=== PATIENT | male | born 1945 ===

== ENCOUNTER 2018-05-06 09:32 | Day surgery (SDC) | payer MEDICARE ==
[2018-04-24 10:00] VITALS: BMI 28.3
[2018-05-06 10:15] VITALS: RESP 18
[2018-05-06] MEDS ORDERED: Bupivacaine 0.5% Inj(30mL) ONE (12:23)
[2018-05-06] MEDS ORDERED: Propofol 10 mg/ml Inj (20 ML) ONE (12:34)
[2018-05-06] MEDS ORDERED: Lidocaine 1% Inj (20ml) ONE (12:34)
[2018-05-06] MEDS ORDERED: Rocuronium 10 mg/ml (5 ml) ONE (12:42)
[2018-05-06] MEDS ORDERED: Neostigmine Methylsulfate 3mg/3ml Syringe IV ONE (14:01)
[2018-05-06] MEDS ORDERED: HYDROmorphone 0.5 mg/0.5 ml ISec IVP PRN (14:27)
--- NOTE | 2018-05-06 14:28 | PCM.SURG1 ---
Surgeon's Initial Post Op Note - Surgeon's Notes Surgeon: Dr. Gray Support Group Manager: Yelena Robles, PGY2. Anabell Quach PGY1 Type of Anesthesia: General Endo Anesthesia Administered By: Dr. Fox Pre-Operative Diagnosis: right inguinal hernia Operative Findings: right indirect inguinal hernia with cord lipoma--see full operative report Post-Operative Diagnosis: right indirect inguinal hernia, cord lipoma Operation Performed: right inguinal hernia repair with mesh Specimen/Specimens Removed: Cord lipoma x2 Estimated Blood Loss: EBL {In ML}: 10 Blood Products Given: N/A Drains Used: No Drains Post-Op Condition: Fair Date of Surgery/Procedure: 05/06/18 Time of Surgery/Procedure: 12:00
[2018-05-06] MEDS ORDERED: Lactated Ringer's 1,000 ML IV SCH (14:30)
--- NOTE | 2018-05-06 14:40 | CP.PCM.PCO ---
Physician Communication Note - Physician Communication Note Physician Communication Note: Spoke to Caesar Pt's sister on the phone. Addendum Addendum: 05/06/18 14:38 Spoke to Caesar, patient's sister, on the phone at 1436 to notify her that patient is out of the OR, tolerated procedure well, and explained discharge orders to return to the hospital if patient does not void urine by 8:30PM. Sister of patient confirmed understanding of instructions
[2018-05-06 15:21] VITALS: PULSE 58; TEMP 97.5; O2SAT 95
[2018-05-06 15:54] VITALS: BP 144/81
--- NOTE | 2018-05-07 01:53 | OP ---
PROCEDURE DATE: 05/06/2018 PREOPERATIVE DIAGNOSIS: Right inguinal hernia. POSTOPERATIVE DIAGNOSIS: Right inguinal hernia. PROCEDURE PERFORMED: Right inguinal hernia repair with mesh. SURGEON: Tristen Gray MD ALL SOURCE COLLECTION MANAGER: Dr. Robles and Dr. Quach. ANESTHESIOLOGIST: Mario Fox MD ANESTHESIA: General endotracheal anesthesia. ESTIMATED BLOOD LOSS: Minimal. SPECIMEN: Cord lipoma. INDICATIONS: The patient is a 72-year-old male with the history of right groin pain, discomfort and bulge associated with tenderness. Patient was examined in the office and noted to have an inguinal hernia and was scheduled for the repair. DESCRIPTION OF PROCEDURE: Patient was brought to the operating room and placed on the operating room table in supine position. The patient was connected to EKG, blood pressure and pulse oximetry monitors. The patient then underwent general endotracheal anesthesia, prepped and draped in the usual sterile fashion. First a standard time-out procedure took place, when everybody in the room agreed as to the patient's identity, diagnoses, and procedure to be performed. A plan for surgical procedure as well as postoperative course was explained to the OR staff. We then proceeded with surgery. First using lidocaine mixed with Marcaine in the area of the inguinal canal, skin overlying inguinal canal was injected and incision was made directly overlying the canal. The incision was carried through the subcutaneous fat and fascia and access to the external oblique aponeurosis was exposed. The aponeurosis was incised along its fibers and elevated and the ilioinguinal nerve was identified. It was detached from the surrounding tissues and elevated and pushed aside in order to avoid injury. Now we proceeded with mobilization of the spermatic cord and its structures and elevated on a Orly drain. The cord was skeletonized, was noted to have two lipomas and small hernia sac, which was pushed back into the abdominal cavity. The preperitoneal space was mobilized through the internal ring of the inguinal canal and hernia patch was used to repair the hernia. The posterior leaf was flattened in the preperitoneal space and the external leaf was switched to the edges of transversalis fascia and inguinal ligament with the monterroso hole cut out for the spermatic cord exit site. Once this was placed flatly on the floor, the cord was placed back in its original position as well as ilioinguinal nerve and the external oblique aponeurosis was sutured using 3-0 Vicryl was completely closed. The area was infiltrated with lidocaine mixed with Toradol and the subcutaneous tissue was copiously irrigated and suctioned out. There was excellent hemostasis noted. The Heidi fascia was closed using 3-0 Vicryl. The deep dermal layer was closed using 3-0 Vicryl and the skin was closed using 4-0 Monocryl in a running fashion. Dermabond was applied to the wound. The patient tolerated the procedure well and there were no complications. The patient was awakened and transferred to the recovery room for further observation. Tristen Gray MD
== END 2018-05-06 15:45 | disposition home or self-care (01) ==
LOC: SDS 09:32
PROVIDERS: ATTEND General Practice
DX: K40.90 Unilateral inguinal hernia, without obstruction or gangrene, not specified as recurrent (principal); Z85.46 Personal history of malignant neoplasm of prostate
CPT/HCPCS: 49505; 88302; C1781; J0131; J0690; J1170; J1885; J2405; J2704; J2710; J3010; J7120 ×2